=== PATIENT | male | born 1980 | race Caucasian/White ===

== ENCOUNTER 2018-08-31 12:07 | Emergency (ER) | payer MEDICAID ==
[~2018-08-31] VITALS: Ht 175.3 cm; Wt 118.2 kg
[2018-08-31 12:12] VITALS: Ht 175.3 cm; Wt 118.2 kg
[2018-08-31 13:04] LABS: BASOPHILS 0.2 % (0-2); EOSINOPHILS 0.8 % (0-7); HEMATOCRIT 45.8 % (42.0-54.0); IMMATURE GRANULOCYTES 0.2 % (0-5); LYMPHOCYTES 12.4 % (15-50); MCH 32.8 pg (26.0-34.0); MCHC 34.9 g/dL (31.0-37.0); MCV 93.9 fL (80.0-100.0); MEAN PLATELET VOLUME 10.6 fL (7.4-10.4); MONOCYTES 6.6 % (2-11); NEUTROPHILS 79.8 % (40-80); PLATELET COUNT 177 10x3/uL (130-400); RBC 4.88 10x6/uL (4.20-6.10); RDW 11.8 % (11.5-14.5); WBC 12.9 10x3/uL (4.8-10.8)
[2018-08-31 13:24] LABS: ALBUMIN 3.6 g/dL (3.4-5.0); ANION GAP 17.2 mmol/L (8-16); BILIRUBIN - TOTAL 0.78 mg/dL (0.2-1.3); CALCIUM 8.9 mg/dL (8.5-10.1); CARBON DIOXIDE 22.7 mmol/L (21.0-32.0); CREATININE - SERUM 1.2 mg/dL (0.6-1.3); POTASSIUM - SERUM 3.9 mmol/L (3.5-5.1); PROTEIN - SERUM 7.3 g/dL (6.4-8.2)
[2018-08-31] MEDS ORDERED: TORADOL10 MG PO (13:31)
[2018-08-31] MEDS ORDERED: ZOFRAN8 MG PO (13:31)
[2018-08-31 13:40] VITALS: BP 142/86
== END 2018-08-31 13:41 | disposition home or self-care (01) ==
LOC: D.ER 12:07
PROVIDERS: Family Medicine
DX: R51 Headache (principal); R11.0 Nausea; F17.200 Nicotine dependence, unspecified, uncomplicated

== ENCOUNTER 2019-05-27 14:15 | Emergency (ER) | payer MEDICAID ==
[~2019-05-27] VITALS: Ht 175.3 cm; Wt 111.4 kg
[~2019-05-27 14:15] MED LIST: TORADOL10 MG PO; ZOFRAN8 MG PO
[2019-05-27 14:17] VITALS: Ht 175.3 cm; Wt 111.4 kg
[2019-05-27 15:00] LABS: ALBUMIN 3.6 g/dL (3.4-5.0); ALKALINE PHOSPHATASE 73 U/L (46-116); ALT (SGPT) 21 U/L (10-68); BILIRUBIN - TOTAL 0.72 mg/dL (0.2-1.3); CALC OSMOLALITY 286 mosm/kg (275-300); CALCIUM 8.7 mg/dL (8.5-10.1); CHLORIDE - SERUM 107 mmol/L (98-107); CREATININE - SERUM 0.9 mg/dL (0.6-1.3); GLUCOSE 116 mg/dL (74-106); POTASSIUM - SERUM 4.3 mmol/L (3.5-5.1); PROTEIN - SERUM 7.1 g/dL (6.4-8.2); SODIUM 143 mmol/L (136-145); UREA NITROGEN 14 mg/dL (7-18); eGFR NON AFRICAN AMERICAN > 90 mL/min (90-120)
[2019-05-27 15:04] LABS: AMYLASE - SERUM 55 U/L (25-115); LIPASE 664 U/L (73-393); TROPONIN-I < 0.017 ng/mL (0.000-0.060)
[2019-05-27 15:05] LABS: BASOPHILS 0.3 % (0-2); EOSINOPHILS 1.9 % (0-7); HEMATOCRIT 40.1 % (42.0-54.0); HEMOGLOBIN 13.7 g/dL (13.5-17.5); IMMATURE GRANULOCYTES 0.2 % (0-5); LYMPHOCYTES 19.4 % (15-50); MCH 29.1 pg (26.0-34.0); MCHC 34.2 g/dL (31.0-37.0); MCV 85.3 fL (80.0-100.0); MONOCYTES 5.8 % (2-11); NEUTROPHILS 72.4 % (40-80); PLATELET COUNT 192 10x3/uL (130-400); RDW 14.3 % (11.5-14.5); WBC 9.1 10x3/uL (4.8-10.8)
[2019-05-27] MEDS ORDERED: NAPRELAN375 MG PO (16:05)
[2019-05-27] MEDS ORDERED: FLAGYL500 MG PO (16:31)
[2019-05-27] MEDS ORDERED: CIPRO500 MG PO (16:31)
[2019-05-27] MEDS ORDERED: BENTYL 20 MG TA20 MG PO (16:31)
[2019-05-27] MEDS ORDERED: ZOFRAN ODT4 MG/UDTAB PO (16:38)
[2019-05-27 18:18] VITALS: BP 104/64
== END 2019-05-27 18:18 | disposition home or self-care (01) ==
LOC: D.ER 14:15
PROVIDERS: Family Medicine
DX: K52.9 Noninfective gastroenteritis and colitis, unspecified (principal); F17.210 Nicotine dependence, cigarettes, uncomplicated

== ENCOUNTER 2019-06-13 13:57 | Emergency (ER) | payer MEDICAID ==
[~2019-06-13 13:57] MED LIST changes: +BENTYL 20 MG TA20 MG PO; +CIPRO500 MG PO; +FLAGYL500 MG PO; +NAPRELAN375 MG PO; +ZOFRAN ODT4 MG/UDTAB PO
[2019-06-13 14:02] VITALS: Ht 175.3 cm
[2019-06-13] MEDS ORDERED: MIRALAX17 GM PO (14:03)
[2019-06-13] MEDS ORDERED: COLACE100 MG PO (14:03)
[2019-06-13 14:36] LABS: BASOPHILS 0.5 % (0-2); EOSINOPHILS 2.3 % (0-7); HEMATOCRIT 42.6 % (42.0-54.0); HEMOGLOBIN 14.7 g/dL (13.5-17.5); IMMATURE GRANULOCYTES 0.3 % (0-5); LYMPHOCYTES 16.8 % (15-50); MCH 30.9 pg (26.0-34.0); MCHC 34.5 g/dL (31.0-37.0); MCV 89.5 fL (80.0-100.0); MEAN PLATELET VOLUME 10.6 fL (7.4-10.4); MONOCYTES 5.4 % (2-11); NEUTROPHILS 74.7 % (40-80); PLATELET COUNT 196 10x3/uL (130-400); RBC 4.76 10x6/uL (4.20-6.10); RDW 14.3 % (11.5-14.5); WBC 9.7 10x3/uL (4.8-10.8)
[2019-06-13 14:51] LABS: ALBUMIN 3.6 g/dL (3.4-5.0); ALKALINE PHOSPHATASE 77 U/L (46-116); ALT (SGPT) 25 U/L (10-68); CALC OSMOLALITY 280 mosm/kg (275-300); CALCIUM 8.9 mg/dL (8.5-10.1); CARBON DIOXIDE 24.9 mmol/L (21.0-32.0); CHLORIDE - SERUM 106 mmol/L (98-107); CREATININE - SERUM 0.9 mg/dL (0.6-1.3); GLUCOSE 112 mg/dL (74-106); POTASSIUM - SERUM 4.9 mmol/L (3.5-5.1); PROTEIN - SERUM 6.7 g/dL (6.4-8.2); SODIUM 140 mmol/L (136-145); UREA NITROGEN 16 mg/dL (7-18); eGFR NON AFRICAN AMERICAN > 90 mL/min (90-120)
[2019-06-13 14:54] LABS: AMYLASE - SERUM 43 U/L (25-115); LIPASE 157 U/L (73-393)
[2019-06-13 14:56] LABS: TROPONIN-I < 0.017 ng/mL (0.000-0.060)
[2019-06-13 15:45] LABS: APPEARANCE CLEAR (CLEAR); BILIRUBIN NEGATIVE (NEGATIVE); COLOR YELLOW (YELLOW); GLUCOSE NEGATIVE (NEGATIVE); KETONE NEGATIVE (NEGATIVE); NITRITE NEGATIVE (NEGATIVE); PROTEIN NEGATIVE (NEGATIVE); SPECIFIC GRAVITY 1.025 (1.005-1.020); UROBILINOGEN NORMAL (NORMAL)
[2019-06-13 15:47] LABS: BACTERIA FEW /hpf (NEGATIVE); EPITHELIAL CELLS 0-5 /hpf (0-5); RED CELLS - URINE 0-5 /hpf (0-5); WHITE CELLS - URINE OCC /hpf (NEGATIVE)
[2019-06-13 16:30] VITALS: BP 132/89
== END 2019-06-13 16:30 | disposition left against medical advice (07) ==
LOC: D.ER 13:57
PROVIDERS: Family Medicine
DX: M79.602 Pain in left arm (principal)